=== PATIENT | male | born 1975 | race Caucasian/White ===

== ENCOUNTER 2021-07-15 10:01 | Inpatient (IN) | payer OTHER ==
[2021-07-15] MEDS ORDERED: MENTHOL/PHENOL 1 EACH UD MM PRN (11:03)
[2021-07-15] MEDS ORDERED: ONDANSETRON *ODT* 4 MG TABLET SL PRN (11:03)
[2021-07-15] MEDS ORDERED: METHOCARBAMOL 500 MG TABLET PO PRN (11:03)
[2021-07-15] MEDS ORDERED: ACETAMINOPHEN 325 MG TABLET (FP) PO PRN (11:03)
[2021-07-15] MEDS ORDERED: IBUPROFEN 400 MG TABLET (FP) PO PRN (11:03)
[2021-07-15] MEDS ORDERED: MAGNESIUM CITRATE 300 ML BOTTLE PO PRN (11:03)
[2021-07-15] MEDS ORDERED: MAGNESIUM HYDROX 2400MG/30ML ORAL SUSPENSION 30 ML CUP PO PRN (11:03)
[2021-07-15] MEDS ORDERED: MAG HYDROX/AL HYDROX/SIMETH 30 ML UNIT-DOSE CUP PO PRN (11:03)
[2021-07-15] MEDS ORDERED: BISMUTH SUBSALICYLATE 262 MG/15 ML BTL PO PRN (11:03)
[2021-07-15] MEDS: diazePAM 5 MG TABLET PO SCH ×3 (11:14→22:24)
[2021-07-15 11:22] VITALS: BMI 29.9
[2021-07-15] MEDS: diazePAM 5 MG TABLET PO PRN (14:34)
[2021-07-15] MEDS: hydrOXYzine PAMOATE 25 MG CAPSULE (FP) PO PRN (14:34)
[2021-07-15] MEDS: ACETAMINOPHEN 325 MG TABLET (FP) PO PRN (18:08)
[2021-07-15] MEDS: THIAMINE HCL 100 MG TABLET (FP) PO SCH (22:25)
[2021-07-15] MEDS: MELATONIN 5 MG TABLETS PO SCH (22:25)
[2021-07-16] MEDS: diazePAM 5 MG TABLET PO SCH ×4 (05:09→22:12)
[2021-07-16] MEDS: PRENATAL VITAMINS W/ FOLIC ACID TABLET (FP) PO SCH (10:39)
[2021-07-16 11:25] LABS: HEMOGLOBIN 12.7 GM/dL (11.7-16.9); MCH 30.3 pg (25.7-33.7); MCHC 33.5 g/dl (32.0-35.9); MEAN CELL VOLUME 90.6 fl (80-96); MEAN PLT VOLUME 8.8 fl (7.5-11.1); PLATELET COUNT 559 10^3/uL (134-434); RDW 17.3 % (11.9-15.9); WHITE BLOOD COUNT 6.9 K/mm3 (4.0-10.0)
[2021-07-16 11:40] LABS: CALCIUM 8.5 mg/dL (8.5-10.1)
[2021-07-16 11:41] LABS: ALBUMIN 3.8 g/dl (3.4-5.0); BLOOD UREA NITROGEN 5.7 mg/dL (7-18)
[2021-07-16 11:45] LABS: TOT PROT 7.1 g/dl (6.4-8.2)
[2021-07-16 11:46] LABS: BILIRUBIN,TOTAL 0.3 mg/dL (0.2-1)
[2021-07-16] MEDS: hydrOXYzine PAMOATE 25 MG CAPSULE (FP) PO PRN (17:51)
[2021-07-16] MEDS: traZODone HCL 50 MG TABLET (FP) PO SCH (22:12)
[2021-07-16] MEDS: MELATONIN 5 MG TABLETS PO SCH (22:13)
[2021-07-16] MEDS: THIAMINE HCL 100 MG TABLET (FP) PO SCH (22:13)
[2021-07-16] MEDS: ACETAMINOPHEN 325 MG TABLET (FP) PO PRN (22:14)
[2021-07-17] MEDS: diazePAM 5 MG TABLET PO SCH ×3 (05:27→22:13)
[2021-07-17] MEDS: PRENATAL VITAMINS W/ FOLIC ACID TABLET (FP) PO SCH (10:26)
[2021-07-17] MEDS: hydrOXYzine PAMOATE 25 MG CAPSULE (FP) PO PRN ×2 (10:26→19:06)
[2021-07-17 12:07] LABS: INR 0.97 (0.83-1.09); PROTHROMBIN TIME (PATIENT) 11.1 SEC (9.7-13.0)
[2021-07-17] MEDS: diazePAM 5 MG TABLET PO PRN (19:04)
[2021-07-17] MEDS: traZODone HCL 50 MG TABLET (FP) PO SCH (22:13)
[2021-07-17] MEDS: MELATONIN 5 MG TABLETS PO SCH (22:13)
[2021-07-17] MEDS: THIAMINE HCL 100 MG TABLET (FP) PO SCH (22:13)
[2021-07-18] MEDS: diazePAM 5 MG TABLET PO SCH ×2 (06:33→18:08)
[2021-07-18] MEDS: diazePAM 5 MG TABLET PO PRN (08:33)
[2021-07-18] MEDS: PRENATAL VITAMINS W/ FOLIC ACID TABLET (FP) PO SCH (10:35)
[2021-07-18] MEDS: MELATONIN 5 MG TABLETS PO SCH (22:08)
[2021-07-18] MEDS: traZODone HCL 50 MG TABLET (FP) PO SCH (22:08)
[2021-07-18] MEDS: THIAMINE HCL 100 MG TABLET (FP) PO SCH (22:08)
[2021-07-18] MEDS: hydrOXYzine PAMOATE 25 MG CAPSULE (FP) PO PRN (22:08)
[2021-07-19] MEDS ORDERED: diazePAM 5 MG TABLET PO ONE (06:00)
[2021-07-19 08:54] VITALS: BP 114/74; PULSE 94; TEMP 97.3
[2021-07-19] MEDS: PRENATAL VITAMINS W/ FOLIC ACID TABLET (FP) PO SCH (10:22)
== END 2021-07-19 10:54 | disposition other institution (70) | DRG 775 ==
LOC: YASAS 10:01 → Y3N 13:38
PROVIDERS: ADMIT Allergy & Immunology; ATTEND Allergy & Immunology
PROC: HZ2ZZZZ Detoxification Services for Substance Abuse Treatment (ICD-10-PCS; principal; 2021-07-15)
DX: F10.230 Alcohol dependence with withdrawal, uncomplicated (principal); F10.220 Alcohol dependence with intoxication, uncomplicated; F10.24 Alcohol dependence with alcohol-induced mood disorder; G47.00 Insomnia, unspecified; R74.01 Elevation of levels of liver transaminase levels; Z56.0 Unemployment, unspecified; Z59.00 Homelessness unspecified
CPT/HCPCS: 36415; 80053; 84450; 84460; 85027; 85610; 86780; C9803-CS; U0003; U0005